=== PATIENT | male | born 1945 | race Caucasian/White ===

== ENCOUNTER 2017-05-26 11:52 | Day surgery (SDC) | payer MEDICARE ==
[~2017-05-26] VITALS: Ht 180.3 cm; Wt 103.0 kg
--- NOTE | ~2017-05-26 | EGD ---
EGD REPORT [facility] [address] [place] [address] NAME: SMOOTH AMES : [birth year] STATUS : REG [facility]#: [id number] AGE: 72 ADM/REG DATE : 05/26/17 MR#: [id number] REPORT SERV DATE: 05/26/17 DICTATED BY: KUNAL GONSALVES DATE: 05/26/17 REPORT STATUS : Draft [facility]ANS[facility]IBED [facility]: [facility] DATE: 05/26/17 Endoscopy Center Patient Name: Smooth Ames Date of : 1945 Attending MD: KUNAL GONSALVES, Procedure Date No Time: 05/26/2017 Procedure: Upper GI endoscopy Indications: Abdominal pain in the right upper quadrant Referring MD: Aric Harrington Medicines: Monitored Anesthesia Care Complications: No immediate complications. Estimated blood loss: None. Procedure: Pre-Anesthesia Assessment: - ASA Grade Assessment: III - A patient with severe systemic disease. After obtaining informed consent, the endoscope was passed under direct vision. Throughout the procedure, the patient's blood pressure, pulse, and oxygen saturations were monitored continuously. The GIF [id number] was introduced through the mouth, and advanced to the efferent jejunal loop. The upper GI endoscopy was accomplished without difficulty. The patient tolerated the procedure well. Findings: The esophagus and gastroesophageal junction were examined with white light. Savage's esophagus was present. Multiple tongues of salmon-colored mucosa were present from 38 to 40 cm. The maximum longitudinal extent of these esophageal mucosal changes was 2 cm in length. Biopsies were taken with a cold forceps for histology. Verification of patient identification for the specimen was done. Estimated blood loss was minimal. 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 The examined jejunum was normal. The cardia and gastric fundus were normal on retroflexion. Impression: - Savage's esophagus. Biopsied. 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 - Normal examined jejunum. Recommendation: - Return to previous diet. - Continue present medications. - Await pathology results. Procedure Code(s): --- Professional --- 85420, Esophagogastroduodenoscopy, flexible, transoral; EGD REPORT [address] [place]. [address] NAME: SMOOTH AMES : [birth year] STATUS : REG [facility] PAT#: [id number] AGE: 72 ADM/REG DATE : 05/26/17 MR#: [id number] REPORT SERV DATE: 05/26/17 DICTATED BY: KUNAL GONSALVES DATE: 05/26/17 REPORT STATUS : Draft TRANSCRIBED BY: [employer] DATE: 05/26/17 with biopsy, single or multiple Diagnosis Code(s): --- Professional --- K22.70, Savage's esophagus without dysplasia Z98.0, Intestinal bypass and anastomosis status R10.11, Right upper quadrant pain CPT copyright 2013 [employer]. All rights reserved. The codes documented in this report are preliminary and upon neuropsychology director review may be revised to meet current compliance requirements. KUNAL GONSALVES, 05/26/2017 2:56 PM Number of Addenda: 0 Note Initiated On: 05/26/2017 2:35 PM Scope Withdrawal Time 0 hours 0 minutes 0 seconds [address] [address]
[~2017-05-26 11:52] MED LIST: ALLEGRA180 PO; ASABAYER PO; AUG875 PO; CALTRA600D PO; CELEXA40 MG PO; CIP5 PO; DIOV160 PO; DIOVAN40 MG PO; DSS PO; FISH-EPA1000 MG PO; FOLIC PO; GLUCOTRO10 PO; GLUCOTROL5 PO; GLUCPH PO; HYDROCHLOROT12.5 MG PO; HYTRIN10 MG PO; IRON PO; ISORDIL20 PO; KAPIDEX30 MG PO; KLONO1 PO; LANTUS SC; LIPITOR10 PO; LOFIBRA54 MG PO; MIRALAXPKT PO; MOMUD PO; NIACIN 500 PO; NITROSTAT0.4 MG SL; NORCO1 TA1 PO; NORV10 PO; NOVOLOG PO; NOVOLOG SC; OTC IRON PO; PCET PO; PROMAR OR; VITAMIN B-121000 MC1 SL; VITAMIN D31000 UNIT PO; VITD PO; ZOCOR20 PO; [UNRECOGNIZED DRUG - OTHER]
== END 2017-05-26 23:59 | disposition home or self-care (01) ==
LOC: DMU 11:52
DX: K22.70 Barrett's esophagus without dysplasia (principal); I10 Essential (primary) hypertension; F41.9 Anxiety disorder, unspecified; I25.10 Atherosclerotic heart disease of native coronary artery without angina pectoris; E11.9 Type 2 diabetes mellitus without complications; G47.33 Obstructive sleep apnea (adult) (pediatric); Z85.07 Personal history of malignant neoplasm of pancreas; Z98.0 Intestinal bypass and anastomosis status; Z87.891 Personal history of nicotine dependence; Z90.49 Acquired absence of other specified parts of digestive tract; Z98.41 Cataract extraction status, right eye; Z98.42 Cataract extraction status, left eye; Z95.5 Presence of coronary angioplasty implant and graft; Z96.1 Presence of intraocular lens; Z98.890 Other specified postprocedural states; Z79.899 Other long term (current) drug therapy
CPT/HCPCS: 82962; 88305